=== PATIENT | female | born 1985 | race Caucasian/White ===

== ENCOUNTER → 2021-02-10 | Outpatient (CLI) | payer OTHER ==
[~2021-02-10] MED LIST: DOXYCYCLINE 10100 MG PO; HYDROCODON-ACE1 EACH PO; LORTAB 5 MG/5001 TA1 PO; PERCOCET 5-3251 EACH PO; PREDNISONE 20 M20 M1 PO; UNKNOWN ABX
== END ==
LOC: CAT 11:59
PROVIDERS: ATTEND Nurse Practitioner
DX: R10.9 Unspecified abdominal pain (principal); R11.0 Nausea